=== PATIENT | male | born 1955 | race Two or more races ===

== ENCOUNTER 2019-02-14 16:10 | Inpatient (IN) | payer OTHER ==
[~2019-02-14] VITALS: Ht 180.3 cm; Wt 99.8 kg
[2019-03-06] MEDS ORDERED: SPIRONOLACTONE25 MG (15:45)
[2019-03-06] MEDS ORDERED: LISINOPRIL10 MG (15:45)
[2019-03-06] MEDS ORDERED: PACERONE200 MG PO (15:45)
[2019-03-06] MEDS ORDERED: ADULT ASPIRIN81 MG (15:45)
[2019-03-06] MEDS ORDERED: XARELTO20 MG (15:45)
[2019-03-06] MEDS ORDERED: CRESTOR40 MG (15:45)
[2019-03-06] MEDS ORDERED: ZETIA10 MG (15:46)
[2019-03-06] MEDS ORDERED: VITAMINA D3 (15:46)
[2019-03-06] MEDS ORDERED: CARVEDILOL25 MG (15:46)
[2019-03-06] MEDS ORDERED: PROTONIX40 MG (15:46)
[2019-03-06] MEDS ORDERED: GABAPENTIN800 MG (15:46)
[2019-03-06] MEDS ORDERED: ZANTAC300 MG (15:46)
[2019-03-15] MEDS ORDERED: VITAMIN D-32000 UNIT (07:43)
== END 2019-03-26 11:06 | disposition home or self-care (01) | DRG 329 ==
LOC: O/R 02-28 09:30 → SURG 02-28 09:30 → O/R 03-15 05:35 → SURG 03-15 07:00 → SURH 03-15 14:11 → SURG 03-16 13:49
PROVIDERS: ADMIT Colon & Rectal Surgery
PROC: 0DTG4ZZ Resection of Left Large Intestine, Percutaneous Endoscopic Approach (ICD-10-PCS; principal; 2019-03-15 07:00)
PROC: BW21Y0Z Computerized Tomography (CT Scan) of Abdomen and Pelvis using Other Contrast, Unenhanced and Enhanced (ICD-10-PCS; 2019-03-20)
DX: C18.6 Malignant neoplasm of descending colon (principal); I50.41 Acute combined systolic (congestive) and diastolic (congestive) heart failure; Z99.11 Dependence on respirator [ventilator] status; T81.41XA Infection following a procedure, superficial incisional surgical site, initial encounter; J95.89 Other postprocedural complications and disorders of respiratory system, not elsewhere classified; J98.11 Atelectasis; J90 Pleural effusion, not elsewhere classified; B96.29 Other Escherichia coli [E. coli] as the cause of diseases classified elsewhere; I48.0 Paroxysmal atrial fibrillation; Z79.01 Long term (current) use of anticoagulants; D69.59 Other secondary thrombocytopenia; I11.0 Hypertensive heart disease with heart failure; G47.33 Obstructive sleep apnea (adult) (pediatric)

== ENCOUNTER 2019-07-29 11:12 | Outpatient (CLI) | payer OTHER ==
[~2019-07-29 11:12] MED LIST: ADULT ASPIRIN81 MG; CARVEDILOL25 MG; CRESTOR40 MG; GABAPENTIN800 MG; LISINOPRIL10 MG; PACERONE200 MG PO; PROTONIX40 MG; SPIRONOLACTONE25 MG; VITAMIN D-32000 UNIT; VITAMINA D3; XARELTO20 MG; ZANTAC300 MG; ZETIA10 MG
== END 2019-07-29 11:16 | disposition home or self-care (01) ==
LOC: RAD 11:12
DX: M25.521 Pain in right elbow (principal)

== ENCOUNTER 2019-10-28 11:56 | Outpatient (CLI) | payer OTHER | END 2019-10-28 11:57 | disposition home or self-care (01) | LOC: RAD 11:56 | PROVIDERS: ATTEND Surgery | DX: K43.2 Incisional hernia without obstruction or gangrene (principal) ==

== ENCOUNTER 2024-10-02 05:49 | Day surgery (SDC) | payer OTHER ==
[2024-09-26 13:30] VITALS: BP 123/77
[~2024-10-02] VITALS: Ht 180.3 cm; Wt 97.5 kg
[~2024-10-02 05:49] MED LIST changes: +JARDIANCE10 MG PO; +TOPROL XL50 M1 PO; +ZETIA10 MG PO
[2024-10-02] MEDS ORDERED: ERTAPENEM SODIUM 1,000 MG VIAL ONE (07:54)
[2024-10-02] MEDS ORDERED: ENOXAPARIN SODIUM 40 MG/0.4 ML SYRINGE SUBCUTANEO ONE ×2 (07:54→10:00)
[2024-10-02] MEDS ORDERED: ERTAPENEM SODIUM 1,000 MG VIAL IV ONE (10:00)
[2024-10-02] MEDS ORDERED: LIDOCAINE HCL 1% 20 ML VIAL IJ ONE (10:10)
[2024-10-02] MEDS ORDERED: HYDROGEN PEROXIDE 473 ML BOTTLE TOP ONE (10:16)
[2024-10-02] MEDS ORDERED: TRAM1TAB98 PO (11:02)
== END 2024-10-02 13:15 | disposition home or self-care (01) ==
LOC: CIR.AMB 05:49
PROVIDERS: ATTEND Surgery
DX: D21.6 Benign neoplasm of connective and other soft tissue of trunk, unspecified (principal)